=== PATIENT | female | born 1985 | race Caucasian/White ===

== ENCOUNTER 2019-04-16 18:05 | Emergency (ER) | payer BC ==
[2019-04-16 18:29] VITALS: BP 119/78; PULSE 92; TEMP 98.2; BMI 18.8
[2019-04-16] MEDS ORDERED: IBUPROFEN 600 MG TABLET (FP) PO ONE ×2 (19:29→19:34)
--- NOTE | 2019-04-16 19:50 | PDOC ---
Documentation entered by Iliana Mcfarlane SCRIBE, acting as scribe for Celine Rivera MD. Celine Rivera MD: This documentation has been prepared by the Maeve kincaid Adrianna, SCRIBE, under my direction and personally reviewed by me in its entirety. I confirm that the documentation accurately reflects all work, treatment, procedures, and medical decision making performed by me. History of Present Illness - General Chief Complaint: Injury Stated Complaint: FALL, RT LOW BACK PAIN - History of Present Illness Initial Comments: The patient is a 33 year old female, with no significant PMH, who presents to the ED for evaluation of right back and hip pain s/p fall earlier this afternoon. Patient notes she [place], when she fell down a flight of stairs and landed on her right side and right buttox. Patient notes she was able to get up and ambulate following the fall. She states that her pain progressively worsened as the day passed. Her pain is most prominent at the right side of the low back and lateral aspect of the right hip. Pain is exacerbated with palpation, cough, sneezing, or laughing. She denies hitting her head during the fall or LOC. Allergies: Penicillins Surgical History: None reported Social History: Denies EtOH, tobacco, or illicit drug use PCP: Dr. Citlalli Giron Past History - Past Medical History Allergies/Adverse Reactions: Allergies Allergy/AdvReac Type Severity Reaction Status Date / Time Penicillins Allergy Verified 04/16/19 18:13 Home Medications: Ambulatory Orders Ibuprofen [Motrin -] 600 mg PO TID PRN #90 tablet 04/16/19 COPD: No - Suicide/Smoking/Psychosocial Hx Smoking History: Never smoked Have you smoked in the past 12 months: No Information on smoking cessation initiated: No Hx Alcohol Use: No Review of Systems - Review of Systems Comments:: GENERAL/CONSTITUTIONAL: No fever or chills. No weakness. HEAD, EYES, EARS, NOSE AND THROAT: No change in vision. No ear pain or discharge. No sore throat. CARDIOVASCULAR: No chest pain or shortness of breath. RESPIRATORY: No cough, wheezing, or hemoptysis. GASTROINTESTINAL: No nausea, vomiting, diarrhea or constipation. GENITOURINARY: No dysuria, frequency, or change in urination. MUSCULOSKELETAL: +Right-sided low back pain. +Right lateral hip pain. No joint or muscle swelling. No neck pain. SKIN: No rash NEUROLOGIC: No headache, vertigo, loss of consciousness, or change in strength/ sensation. ENDOCRINE: No increased thirst. No abnormal weight change. HEMATOLOGIC/LYMPHATIC: No anemia, easy bleeding, or history of blood clots. ALLERGIC/IMMUNOLOGIC: No hives or skin allergy. *Physical Exam - Vital Signs Last Vital Signs Temp Pulse Resp BP Pulse Ox 98.2 F 92 H 18 119/78 100 04/16/19 18:05 04/16/19 18:05 04/16/19 18:05 04/16/19 18:05 04/16/19 18:05 - Physical Exam Comments: GCS 15. GENERAL: Awake, alert, and fully oriented, in no acute distress HEAD: No signs of trauma EYES: PERRLA, EOMI, sclera anicteric, conjunctiva clear ENT: Auricles normal inspection, hearing grossly normal, nares patent. Moist mucosa NECK: Normal ROM, supple, no lymphadenopathy, JVD, or masses LUNGS: Breath sounds equal, clear to auscultation bilaterally. No wheezes, and no crackles HEART: Regular rate and rhythm, normal S1 and S2, no murmurs, rubs or gallops ABDOMEN: +Right lower rib tenderness to palpation. Soft, nontender, normoactive bowel sounds. No guarding, no rebound. No step off, no crepitus. No masses BACK: +Right CVA tenderness. No cervical spine tenderness. No midline thoracic, lumbar, or sacral tenderness. EXTREMITIES: +Right hip pain tenderness to palpation. Full range of motion, no edema. Otherwise, all extremities atruamatic, non-tender with FROM. No erythema. DP/PT pulses 2+ and symmetric. Warm and well perfused. NEUROLOGICAL: GCS 15. Moves all extremities. Normal speech, normal gait SKIN: Warm, Dry, normal turgor, no rashes or lesions noted. ED Treatment Course - ADDITIONAL ORDERS Additional order review: Laboratory Results 04/16/19 18:47 Urine HCG, Qual Negative - RADIOLOGY Radiology Studies Ordered: Category Date Time Status HIP-RIGHT [RAD] Stat Radiology 04/16/19 19:29 Ordered RIBS RIGHT SIDE [RAD] Stat Radiology 04/16/19 19:30 Ordered - Medications Given in the ED: ED Medications Discontinued Medications Generic Name Dose Route Start Last Admin Trade Name Barbi PRN Reason Stop Dose Admin Ibuprofen 600 mg 04/16/19 19:29 04/16/19 19:38 Motrin - PO 04/16/19 19:30 600 mg ONCE ONE Administration Medical Decision Making - Medical Decision Making 04/16/19 19:49 33 yo F s/p tr[place] and [place] while [place] her 2 yr old son, landing on buttock and right side. c/o right flank pain right hip pain and lower back pain. has been ambulating all day. no new weakness numbness or tingling. happened around 12 oclock this afternoon. no pain is worse. no hematuria. no prior back surgiers. on exam right cva TTP. no midline spinal tenderness. mild ttp over lower right rib. right hip ttp. plan xray hip and ribs, ua. pain control. arnieley contusion. 04/16/19 20:55 xray pelvis, negative for fracture. pelvis negative. ribs negative for fracture. pt feeling improved followig motrin. dc home. *DC/Admit/Observation/Transfer Diagnosis at time of Disposition: Contusion - Discharge Dispostion Disposition: HOME Condition at time of disposition: Improved Decision to Admit order: No - Prescriptions Prescriptions: Ibuprofen [Motrin -] 600 mg PO TID PRN #90 tablet PRN Reason: Pain - Referrals Referrals: ON STAFF,NOT [Primary Care Provider] - - Patient Instructions Printed Discharge Instructions: Contusion Additional Instructions: you will be sore for 3 - 5 days. return for any problems or concerns. you can take motrin 600 mg every 8 hrs as needed for pain. you should follow up with your primary doctor. - Post Discharge Activity
== END 2019-04-16 21:12 | disposition home or self-care (01) ==
LOC: FER 18:05 → SUPCPDRO 18:05 → FER 21:12
DX: S70.01XA Contusion of right hip, initial encounter (principal); W10.8XXA Fall (on) (from) other stairs and steps, initial encounter; Y93.89 Activity, other specified; Y92.834 Zoological garden (Zoo) as the place of occurrence of the external cause
CPT/HCPCS: 71101-TC-RT-FY; 73502-TC-RT-FY; 84703; 99282-25